=== PATIENT | female | born 1940 | race Hispanic/Latino ===

== ENCOUNTER 2022-11-19 05:49 | Day surgery (SDC) | payer OTHER ==
[~2022-11-19] VITALS: Ht 152.4 cm; Wt 53.0 kg
[2022-11-19] VITALS (11 sets, daily range): BP systolic 91–122; BP diastolic 40–48
[~2022-11-19 05:49] MED LIST: ALBU8.5H8 IH; AMOX1TAB15 PO; APIX2.5T PO; CARV6.25 PO; CHOL500045 PO; CITA-107 PO; CYAN250T3 PO; CYCL30DR OU; FLUT16H; LOSA100T58 PO; METF-444 PO; ROSU10TA28 PO
[2022-11-19] MEDS ORDERED: 0.9%NACL 1000ML 1,000 ML IV ONE (06:26)
[2022-11-19 07:00] LABS: INR 0.99 (0.85-1.15); PROTHROMBIN TIME 10.8 SEC (9.6-11.6)
[2022-11-19 07:01] LABS: PARTIAL THROMBOPLASTIN TIME 26.9 SEC (26.3-35.5)
[2022-11-19] MEDS ORDERED: IOHEXOL 350 MG/ML 100ML INFUS..BTL IV ONE (07:09)
[2022-11-19] MEDS ORDERED: NITROGLYCERIN 50MG VIAL ONE (07:09)
[2022-11-19] MEDS ORDERED: VERAPAMIL HCL 2.5 MG/ML VIAL ONE (07:09)
[2022-11-19] MEDS ORDERED: HEPARIN 10,000 UNIT/10ML (1,000 UNIT/ML) VIAL ONE (07:09)
[2022-11-19] MEDS ORDERED: FENTANYL CITRATE PF 50 MCG/1 ML 2ML VIAL ONE (07:10)
[2022-11-19] MEDS ORDERED: LIDOCAINE HCL 1% MDV 50ML VIAL ONE (07:10)
[2022-11-19] MEDS ORDERED: MIDAZOLAM HCL 1 MG/ML 2ML VIAL ONE (07:10)
[2022-11-19] MEDS ORDERED: DEXTROSE 50%-WATER 50 ML DISP.SYRIN IV PRN (08:30)
[2022-11-19] MEDS ORDERED: GLUCAGON 1MG KIT 1 MG ML IM PRN (08:30)
== END 2022-11-19 11:10 | disposition home or self-care (01) ==
LOC: DAH 05:49
PROVIDERS: ATTEND Student in an Organized Health Care Education/Training Program
DX: I35.0 Nonrheumatic aortic (valve) stenosis (principal); I10 Essential (primary) hypertension; E11.8 Type 2 diabetes mellitus with unspecified complications; Z79.01 Long term (current) use of anticoagulants; Z79.899 Other long term (current) drug therapy; Z79.84 Long term (current) use of oral hypoglycemic drugs; Z98.890 Other specified postprocedural states; Z90.710 Acquired absence of both cervix and uterus; Z83.3 Family history of diabetes mellitus
CPT/HCPCS: 93454; 85610; 85730; 82948 ×2; 36415; C1769; C1887; C1894; J3010; J7030; J1644 ×2; J2250; J3490 ×3; Q9967; A4215; A4335; A4222; A6260; A4221; A4663; A4216; A6206; A4606; Q9965 ×2; A4223 ×3; 99156; 99157

== ENCOUNTER → 2023-04-25 | Outpatient (CLI) | payer OTHER ==
[~2023-04-25] MED LIST changes: -CHOL500045 PO; -LOSA100T58 PO; +LOSA100T59 PO
== END | disposition home or self-care (01) ==
LOC: SHCH 14:37
PROVIDERS: ATTEND Student in an Organized Health Care Education/Training Program
DX: I70.213 Atherosclerosis of native arteries of extremities with intermittent claudication, bilateral legs (principal)
CPT/HCPCS: 93925